=== PATIENT | male | born 1960 | race Caucasian/White ===

== ENCOUNTER 2017-11-12 00:29 | Observation (INO) | payer BC ==
[2017-11-12] MEDS ORDERED: Dextrose 50% Abboject 50 ML SYRINGE ONE (01:11)
[2017-11-12 01:24] LABS: #Eosinphils 0.1 thou/uL (0.0-0.7); #Monocytes 0.5 thou/uL (0.11-0.59); #Neutrophils 6.1 thou/uL (1.40-6.50); %Basophils 0.5 % (0.0-1.0); %Eosinophils 0.8 % (0.0-10.0); %Lymphocytes 23.2 % (21.0-51.0); %Neutrophils 69.5 % (42.0-75.0); Hemoglobin 14.9 g/dL (14.0-18.0); Mean Corpuscular HGB CONC 33.6 g/dL (32.0-36.0); Mean Corpuscular Hemoglobin 30.4 pg (27.0-31.0); Mean Corpuscular Volume 90.6 fL (78.0-98.0); Mean Platelet Volume 7.7 fL (7.4-10.4); Platelet Count 180 thou/uL (130-400); RBC Distribution Width 11.4 % (11.5-14.5); White Blood Cell (WBC) Count 8.8 thou/uL (4.8-10.8)
[2017-11-12 01:37] LABS: ALT (SGPT) 30 U/L (8-55); AST (SGOT) 27 U/L (5-34); Albumin 4.2 g/dL (3.5-5.0); Alkaline Phosphatase 64 U/L (40-150); Anion Gap 13 mmol/L (10-20); BUN (Urea Nitrogen) 22 mg/dL (8.4-25.7); Bilirubin, Total 0.4 mg/dL (0.2-1.2); Calc. Creatinine Clearance 0 mL/min (70-130); Calcium 9.3 mg/dL (7.8-10.44); Carbon Dioxide 27 mmol/L (22-29); Chloride 104 mmol/L (98-107); Estimated GFR-MDRD 61; Globulin 2.7 g/dL (2.4-3.5); Glucose 139 mg/dL (70-105); Potassium 3.4 mmol/L (3.5-5.1); Protein, Total 6.9 g/dL (6.0-8.3); Sodium 141 mmol/L (136-145)
[2017-11-12 01:41] LABS: Bilirubin Negative (Negative); Blood, Urine Negative (Negative); Clarity CLEAR (Clear); Glucose, Urine (Dipstick) Negative (Negative); Leukocyte Negative (Negative); Nitrite Negative (Negative); Protein, Urine (Dipstick) Negative (Neg-Trace); Specific Gravity, Urine 1.012 (1.002-1.036)
[2017-11-12 01:42] LABS: CKMB 1.3 ng/mL (0-6.6); Troponin I Less than 0.010 ng/mL (< 0.028)
[2017-11-12] MEDS ORDERED: Ondansetron ODT 4 MG TAB PO PRN (06:40)
[2017-11-12] MEDS ORDERED: Ondansetron HCl/PF 4 MG/2 ML Vial IVP PRN (06:40)
[2017-11-12] MEDS ORDERED: Acetaminophen 325 MG TAB PO PRN (06:41)
[2017-11-12 06:47] VITALS: BMI 25.5
[2017-11-12 07:39] LABS: Lactic Acid 0.8 mmol/L (0.5-2.2)
[2017-11-12 07:56] VITALS: TEMP 98.6
[2017-11-12 08:11] VITALS: BP 115/71
--- NOTE | 2017-11-12 09:57 | RAD ---
PORTABLE CHEST: Date: 11/12/17 HISTORY: Altered mental status. Hypothermia. COMPARISON: 03/11/16. FINDINGS: Heart size and mediastinum are within normal limits. Lungs are clear of any infiltrative process. No significant bony findings. IMPRESSION: No active intrathoracic disease. POS: [facility]
--- NOTE | 2017-11-12 10:23 | HP ---
DATE OF ADMISSION: 11/12/2017 PRIMARY CARE PHYSICIAN: Dr. Kuldeep Trujillo TIME OF SERVICE: 929 CHIEF COMPLAINT: Low glucose and hypothermia. HISTORY OF PRESENT ILLNESS: Mr. Motley is a pleasant 57-year-old gentleman recently diagnosed with amparo eneida, started on Toujeo about 6 weeks ago. He since then converted to a paleo diet. He was brought to the emergency department last evening after having low blood sugars and being "drun k." He noticed that he took his insulin around 2230 which is 4-4-1/2 hours later than normal. For d inner he had a normal meal for him lately, but was very low in carbohydrates and high in meat and gladis d basically it was all meat. He took his blood sugars subsequently and found to be 32-34 and then er ror. He was given candy, water and a glucose pill, but still dropping after initial increase and so he was brought to the emergency department. In the ER he was found to be hypothermic and hypoglycemi c. He was given D50 with good recovery and was subsequently placed in observation. Since that time, he has been on the floor. The blood sugar prior to breakfast was 139. He had a goo d normal diabetic diet. No complaints. No altered mental status or sweats. No fevers or chills. N o nausea, vomiting, diarrhea, constipation. No sweats and no temperature regulation issues now. PAST MEDICAL HISTORY: 1. Diabetes mellitus type 2. 2. Hyperlipidemia. 3. Elevated cholesterol. PAST SURGICAL HISTORY: None. HOME MEDICATIONS: 1. Toujeo 30 units subcu q.p.m. 2. Crestor 10 mg p.o. at bedtime. ALLERGIES: NKDA. FAMILY HISTORY: Negative for clotting or bleeding disorder, no immune dysfunction or premature coron ash disease. SOCIAL HISTORY: Significant for social alcohol. Negative for IV drugs or tobacco. He is . He was recently converted from a regular diabetic to a paleo diet. REVIEW OF SYSTEMS: All systems reviewed and negative except as stated per HPI. PHYSICAL EXAMINATION: VITAL SIGNS: Temperature current is 98.6, pulse 79, blood pressure is 115/71, respiratory rate 16, s atting 97% on room air. GENERAL: He is awake. He is alert. He is oriented x3, well-developed, well-nourished, white male w ho appears to be in zero distress. HEENT: Normocephalic, atraumatic. Pupils equal, round, react to light bilaterally. Mucous membrane s are moist. No visible lesions. No thrush. NECK: Supple. He has no lymphadenopathy, JVD, or thyromegaly. He has normal carotid upstroke. The re are no bruits. LUNGS: Clear to auscultation bilaterally. Good air movement. Symmetric chest excursion. No wheeze . No rales, no rhonchi, no problem with respiratory phase. CARDIOVASCULAR: Normal S1, S2. No S3, S4. No audible murmurs. ABDOMEN: Soft, is nontender, nondistended, no mass, no organomegaly. No rebound, rigidity or guardi ng. He has got normoactive bowel sounds in all 4 quadrants. EXTREMITIES: No cyanosis, no clubbing, no edema, 2+ peripheral pulse in the dorsalis pedis, posterio r tibial, and radial arteries. SKIN: Warm, moist and well perfused. No rashes or lesions. Temperature is normal. Capillary refil l less than 2 seconds. MUSCULOSKELETAL: Normal to inspection. All joints appear normal. There is no evidence of inflammat ion or palpable effusions. NEUROLOGIC: Cranial nerves II-XII are grossly intact, he has 5/5 strength, normal speech, normal men tation. LABORATORY DATA: Labs this morning on admission showed a white count of 8.8, hemoglobin 14.9, hemato crit 44.4, platelet count is 180,000. CMP is within normal limits except for potassium 3.4. Lactic acid initially 2.4 with a repeat 6 hours later 0.8. CK-MB is 1.3, troponin I 0.010. Urinalysis was normal. ASSESSMENT AND PLAN: 1. Hyperglycemia, secondary to insulin use and decreased carbohydrate intake. I discussed with them they ____ have a constant carbohydrate diet. Recommend they either cut in half or discontinue the T oujeo completely until he sees Dr. Plummer or convert to a constant carbohydrate diet. He may be a bet ter candidate for metformin. 2. Hypothermia, likely secondary to severe hypoglycemia. Now normothermic. 3. Diabetes mellitus type 2, as above. 4. Hyperlipidemia, on Crestor, continue. The patient was placed in observation. His sugars are now normal. We will discharge him for outpati ent followup.
--- NOTE | 2017-11-12 10:24 | DIS ---
DATE OF ADMISSION: 11/12/2017 DATE OF DISCHARGE: 11/12/2017 TIME OF SERVICE: 09:40. PRIMARY CARE PHYSICIAN: Dr. Kuldeep Trujillo. CONSULTATIONS: None. PROCEDURES: None. HISTORY AND PHYSICAL: Mr. Motley is a 57-year-old gentleman who was brought to the ER for persistent h ypoglycemia. He also was noted to be hypothermic. He was placed in observation and had normalizatio n of his blood sugars and temperature as his sugars came up. We were initially called for admission. HOSPITAL COURSE: The patient was seen and examined in the emergency department. We were called for admission. The patient was accepted and transferred to the observation unit. Temporary orders were placed by the ER doctor. The patient was placed in observation around 06:30. Since admission, his sugars have normalized, temperatures have normalized. He had a normal diabetic diet this morning and his blood sugars remained stable. He is subsequently stable for discharge with outpatient followup. DISCHARGE CONDITION: Stable. DISPOSITION: Discharged home via private vehicle. DISCHARGE DIET: Heart healthy, diabetic recommended. If he continue with the paleo diet, recommend he stop his Toujeo altogether. DISCHARGE MEDICATIONS: 1. Toujeo 30 units subcu b.i.d., to continue if he is on a constant carbohydrate diet, otherwise to cut in half or discontinue completely until sees Dr. Trujillo. 2. Crestor 10 mg p.o. at bedtime. DISCHARGE ACTIVITY: As tolerated. DISCHARGE DIET: As above.
== END 2017-11-12 10:07 | disposition home or self-care (01) ==
LOC: ERS 00:29 → 2SW 04:25
PROVIDERS: ADMIT Hospitalist; ATTEND Hospitalist
DX: E11.649 Type 2 diabetes mellitus with hypoglycemia without coma (principal); T38.3X5A Adverse effect of insulin and oral hypoglycemic [antidiabetic] drugs, initial encounter; T68.XXXA Hypothermia, initial encounter; E78.00 Pure hypercholesterolemia, unspecified; Z79.4 Long term (current) use of insulin
CPT/HCPCS: 36415; 36416; 71045; 80053; 81003; 82553; 83605; 84484; 85025; 93005; 96374; G0378

== ENCOUNTER 2018-07-14 16:57 | Emergency (ER) | payer BC ==
[2018-07-14] MEDS ORDERED: Adacel (T-DAP) 0.5 ML SYRINGE ONE (18:21)
== END 2018-07-14 18:37 | disposition home or self-care (01) ==
LOC: ERS 16:57
DX: S01.01XA Laceration without foreign body of scalp, initial encounter (principal); E78.5 Hyperlipidemia, unspecified; E11.9 Type 2 diabetes mellitus without complications; W22.8XXA Striking against or struck by other objects, initial encounter
CPT/HCPCS: 12002; 90471; 90715